=== PATIENT | female | born 1980 | race Two or more races ===

== ENCOUNTER 2019-06-22 18:42 | Emergency (ER) | payer OTHER ==
[~2019-06-22] VITALS: Ht 154.9 cm; Wt 54.4 kg
[~2019-06-22 18:42] MED LIST: ALEVE220 MG PO; LEVOXYL50 MCG PO; SYNTHROID88 MCG PO; TIGAN250 MG PO; TRAMADOL HCL50 MG PO
[2019-06-22] MEDS ORDERED: SYNTHROID75 MCG (18:59)
== END 2019-06-22 21:45 | disposition home or self-care (01) ==
LOC: ER 18:42
DX: E86.0 Dehydration (principal); R11.11 Vomiting without nausea

== ENCOUNTER 2019-09-02 11:54 | Emergency (ER) | payer OTHER ==
[~2019-09-02] VITALS: Ht 154.9 cm; Wt 54.0 kg
[~2019-09-02 11:54] MED LIST changes: +SYNTHROID75 MCG
== END 2019-09-02 15:52 | disposition home or self-care (01) ==
LOC: ER 11:54
DX: B34.9 Viral infection, unspecified (principal)

== ENCOUNTER 2019-09-02 18:32 | Emergency (ER) | payer OTHER ==
[~2019-09-02] VITALS: Ht 154.9 cm; Wt 54.0 kg
== END 2019-09-02 22:22 | disposition home or self-care (01) ==
LOC: ER 18:32
DX: K29.70 Gastritis, unspecified, without bleeding (principal)

== ENCOUNTER 2020-12-15 12:59 | Emergency (ER) | payer OTHER ==
[~2020-12-15] VITALS: Ht 154.9 cm; Wt 53.5 kg
[2020-12-15] MEDS ORDERED: TAMS0.4C PO (21:01)
[2020-12-15] MEDS ORDERED: CIPRO500 MG PO (21:01)
[2020-12-15] MEDS ORDERED: ACETAMINOPHEN650 M2 PO (21:01)
[2020-12-15] MEDS ORDERED: SURFAK240 M1 PO (21:02)
[2020-12-15] MEDS ORDERED: BACTRIM DS TAB1 EACH PO (21:07)
== END 2020-12-15 21:16 | disposition home or self-care (01) ==
LOC: ER 12:59
DX: K59.09 Other constipation (principal); N20.0 Calculus of kidney; K62.89 Other specified diseases of anus and rectum; Z03.818 Encounter for observation for suspected exposure to other biological agents ruled out